=== PATIENT | female | born 1980 | race Caucasian/White ===

== ENCOUNTER → 2020-06-29 14:39 | Outpatient (CLI) | payer OTHER, SELFPAY ==
--- NOTE | ~2020-06-29 | US_ITS ---
EXAMINATION: US pelvic complete DATE: 06/29/2020 15:04 INDICATION: Pelvic pain Comparison:No prior studies for comparison. TECHNIQUE: Multiple transabdominal sonographic images of the pelvis performed. FINDINGS: The uterus measures 8.1 x 4.2 x 5.8 cm. There is an IUD in the endometrium. The endometrial complex measures 5 mm. The right ovary measures 2.9 x 1.7 x 2.6 cm and the left ovary measures 2.2 x 3.2 x 2.2 cm. There ar e small follicles in each ovary. Normal doppler signal in both ovaries. There is no free fluid in the pelvis. There are no abnormal masses seen on either side. IMPRESSION: 1. Unremarkable pelvic ultrasound. IUD in expected position. Reviewed, dictated and finalized at location B.
== END ==
PROVIDERS: Visit Provider Obstetrics & Gynecology
DX: R10.2 Pelvic and perineal pain (principal); Z97.5 Presence of (intrauterine) contraceptive device
CPT/HCPCS: 76856

== ENCOUNTER 2021-01-04 22:32 | Emergency (ER) | payer OTHER, SELFPAY ==
--- NOTE | ~2021-01-04 | XR_ITS ---
XR chest 2V DATE: 01/04/2021 23:05 INDICATION: Chest pain for one day. No cardiac history. TECHNIQUE: PA and lateral views COMPARISON: 10/09/2017 PA and lateral views FINDINGS: Normal heart size. No hilar or mediastinal enlargement. No pulmonary infiltrate or consolid ation, pleural effusion or pulmonary vascular congestion or pneumothorax. IMPRESSION: No active cardiopulmonary disease Reviewed, dictated and finalized at location A.
[2021-01-04 22:36] VITALS: BP 146/92; PULSE 89; RESP 19; TEMP 36.1; O2SAT 99
--- NOTE | 2021-01-04 22:40 | ECG_ITS ---
Measurements Intervals [place] Rate: 87 P: 39 WV: 154 QRS: 24 QRSD: 91 T: 11 QT: 362 QTc: 436 Interpretive Statements SINUS RHYTHM BORDERLINE ST-T WAVE ABNORMALITY- INFERIOR LEADS BASELINE ARTIFACT- I, II, III, AVR, AVL, AVF, V6 BORDERLINE ECG Electronically Signed On 01-05-2021 6:38:59 CDT by Jose Simon D.O.
[2021-01-04 23:02] LABS: Basophils Percent Auto 0.6 % (0.2-1.2); Eosinophils Absolute Auto 0.2 K/mm3 (0-0.3); Eosinophils Percent Auto 3.4 % (0-4.4); Hematocrit 38.9 % (37.0-47.0); Hemoglobin 13.5 g/dL (12.0-15.0); Immature Granulocyte Absolute 0.02 K/mm3 (0.00-0.031); Immature Granulocyte Percent A 0.3 % (0-0.5); Lymphocytes Percent Auto 29.3 % (18.3-44.2); Mean Corpuscular HGB Conc 34.7 g/dl (32-36); Mean Corpuscular Volume 95.1 fl (80-100); Mean Platelet Volume 9.6 fl (7.4-10.4); Monocytes Absolute Auto 0.5 K/mm3 (0.1-0.6); Monocytes Percent Auto 6.6 % (2.6-8.5); Neutrophils Absolute Auto 4.1 K/mm3 (1.3-6.7); Neutrophils Percent Auto 59.8 % (45.5-73.1); Platelet Count Result 203 k/mm3 (150-375); Red Blood Count 4.09 M/mm3 (4.2-5.4); Red Cell Distribution Width 11.8 % (11.5-14.5); White Blood Count 6.8 K/mm3 (4.5-10.0)
[2021-01-04 23:21] LABS: INR 0.9; Partial Thromboplastin Time 26.9 SECONDS (22.3-36.8); Prothrombin Time 11.9 Seconds (11.1-14.7)
[2021-01-04 23:54] LABS: Anion Gap 9 mmol/L (8-16); Blood Urea Nitrogen 15 mg/dL (7-17); Calcium 9.9 mg/dL (8.4-10.2); Carbon Dioxide 28 mmol/L (22-30); Chloride 103 mmol/L (98-107); Estimated CRCL calculation 81 ml/min; Estimated Glomerular Filt Rate > 60; Glucose 110 mg/dL (65-110); Potassium 3.8 mmol/L (3.4-5.0); Sodium 140 mmol/L (137-145)
[2021-01-05 00:05] LABS: Troponin I < 0.012 ng/mL (0.000-0.034)
[2021-01-05 00:27] VITALS: BP 129/96; PULSE 88; RESP 18; O2SAT 98
[2021-01-05 00:28] VITALS: PULSE 86
[2021-01-05] MEDS: ASPIRIN 81 MG CHEWABLE TABLET 324 MG PO (00:34)
--- NOTE | 2021-01-05 00:54 | PC.NURSE ---
Called lab to add d dimer
[2021-01-05 01:05] LABS: D Dimer 0.35 ug/mL (<0.48)
--- NOTE | 2021-01-05 01:24 | ED.GENADULT ---
HPI - General Adult General Chief complaint: Chest Pain Stated complaint: chest pain Time Seen by Provider: 01/05/21 00:48 Source: patient and RN notes reviewed History of Present Illness HPI narrative: Patient is a 40 y/o female complaining of upper chest pain starting yesterday morning. She describes her pain as throbbing and rates it as 5/10. Patient radiates to her neck and jaw. Deep respiration seems to aggravated her pain. She has no cough or fever. She feels slightly SOB. Related Data Allergies Allergy/AdvReac Type Severity Reaction Status Date / Time No Known Allergies Allergy Verified 02/21/18 13:19 Review of Systems Constitutional: Constitutional: Denies chills, Denies fever(s), Denies headache(s) and Denies weakness Eyes: Eyes: Denies blurry vision ENT: Denies headache(s) and Denies neck pain Cardiovascular: Cardiovascular: Reports chest pain and Reports dyspnea Respiratory: Respiratory: Denies cough and Reports dyspnea Gastrointestinal: Gastrointestinal: Denies abdominal pain, Denies diarrhea, Denies nausea and Denies vomiting Genitourinary: Genitourinary: Denies hematuria and Denies dysuria Musculoskeletal: Musculoskeletal: Denies back pain and Denies neck pain Neurologic: Denies headache(s) and Denies weakness Exam Const: General: no acute distress and well developed Orientation/consciousness: oriented to person, oriented to place, oriented to time and patient oriented x3 HENMT: Head: normocephalic Ears: external ears normal General nose exam: Normal external nose present Eyes: General: appearance normal, both eyes and all related structures Conjunctivae: conjunctivae normal Neck: Neck: normal visual inspection and full ROM Chest: Chest palpation & inspection: normal inspection of the chest and no tenderness Resp: Effort & Inspection: normal respiratory effort Auscultation: clear to auscultation bilaterally Cardio: Rate: regular rate Rhythm: regular rhythm GI: GI Palp: No abdominal tenderness and Yes Soft to palpation Skin: General skin exam: normal color and turgor normal Neuro: General: oriented to person, oriented to place, oriented to time and patient oriented x3 Cognition (Neuro): normal cognition Extrem: General: normal to inspection, full ROM and no pedal edema Psych: Appearance: grossly normal Mental Status: mental status grossly normal Affect: normal affect Course Vital Signs Vital signs: Vital Signs Temperature 36.1 C L 01/04/21 22:36 Pulse Rate 89 01/04/21 22:36 Respiratory Rate 19 01/04/21 22:36 Blood Pressure 146/92 H 01/04/21 22:36 Pulse Oximetry 99 01/04/21 22:36 Temperature 36.1 C L 01/04/21 22:36 Pulse Rate 81 01/05/21 02:50 Respiratory Rate 18 01/05/21 02:50 Blood Pressure 126/90 01/05/21 02:50 Pulse Oximetry 100 01/05/21 02:50 Medical Decision Making Vital Signs Vital Signs: Vital Signs Temperature 36.1 C L 01/04/21 22:36 Pulse Rate 89 01/04/21 22:36 Respiratory Rate 19 01/04/21 22:36 Blood Pressure 146/92 H 01/04/21 22:36 Pulse Oximetry 99 01/04/21 22:36 Temperature 36.1 C L 01/04/21 22:36 Pulse Rate 81 01/05/21 02:50 Respiratory Rate 18 01/05/21 02:50 Blood Pressure 126/90 01/05/21 02:50 Pulse Oximetry 100 01/05/21 02:50 Lab Data Result diagrams: 01/04/21 22:52 01/04/21 22:52 Labs: Lab Results 01/04/21 01/04/21 01/04/21 Range/Units 22:51 22:52 22:52 WBC 6.8 (4.5-10.0) K/mm3 RBC 4.09 L (4.2-5.4) M/mm3 Hgb 13.5 (12.0-15.0) g/dL Hct 38.9 (37.0-47.0) % MCV 95.1 (80-100) fl MCH 33.0 (26-34) pg MCHC 34.7 (32-36) g/dl RDW 11.8 (11.5-14.5) % Plt Count 203 (150-375) k/mm3 MPV 9.6 (7.4-10.4) fl Immature Gran % (Auto) 0.3 (0-0.5) % Neut % (Auto) 59.8 (45.5-73.1) % Lymph % (Auto) 29.3 (18.3-44.2) % [place] % (Auto) 6.6 (2.6-8.5) % Eos % (Auto) 3.4 (0-4.4) % Baso % (Auto)
[2021-01-05 01:27] LABS: Add Urine Microscopic? NO; Appearance Urine Clear (Clear); Bilirubin Urine Negative (Negative); Blood Urine Negative (Negative); Color Urine Yellow (Yellow); Glucose Urine UA Negative (Negative); Ketones Urine Negative (Negative); Leukocyte Esterase Ur Negative LEU/UL (Negative); Nitrate Urine Negative (Negative); Protein Urine Negative (Negative); RBC Urine 0-2 /hpf (0-2); Specific Grav Ur 1.013 (1.001-1.035); Squamous Epithelial Cell Urine Few /hpf (Few); Urobilinogen Urine Negative mg/dL (<2.0); WBC Urine 0-3 /hpf
[2021-01-05 02:33] LABS: Troponin I < 0.012 ng/mL (0.000-0.034)
[2021-01-05 02:50] VITALS: BP 126/90; PULSE 81; RESP 18; O2SAT 100
== END 2021-01-05 02:52 | disposition home or self-care (01) ==
PROVIDERS: Emergency Medicine; Emergency Provider Emergency Medicine
DX: R07.9 Chest pain, unspecified (principal); R94.31 Abnormal electrocardiogram [ECG] [EKG]
CPT/HCPCS: 36415; 71046; 80048; 81003; 81025; 84484; 85025; 85380; 85610; 85730; 93005; 99284; A9270

== ENCOUNTER 2021-07-02 17:58 | Emergency (ER) | payer OTHER, SELFPAY ==
--- NOTE | ~2021-07-02 | XR_ITS ---
EXAM: XR abdomen/kub 1V HISTORY: BACK AND LOWER ABD.PAIN COMPARISON: None available FINDINGS: Normal bowel gas pattern. No organomegaly. No abnormal abdominal calcification. Pelvic phl eboliths. IUD. Degenerative change in the lumbar spine, otherwise the bones and soft tissues normal f or age. IMPRESSION: No ileus or obstruction. Reviewed, dictated and finalized at location K. IMPRESSION: No ileus or obstruction.
[2021-07-02 18:09] VITALS: BP 130/87; PULSE 84; RESP 16; TEMP 36.3; O2SAT 100
--- NOTE | 2021-07-02 18:30 | ED.BACK ---
HPI - Back Pain/Injury General Chief Complaint: Back Pain/Injury Stated Complaint: back/lower belly pain Time Seen by Provider: 07/02/21 18:25 Source: patient, RN notes reviewed and old records reviewed Mode of arrival: ambulatory Limitations: no limitations History of Present Illness HPI Narrative: 41 year old female presents to [facility] care with complaints of 2-3 weeks of intermittent lower back pain and now having some mild pain in lower suprapubic abdomen and after urination with no hematuria noted. Patient report pain as aching and cramping type of pain rates pain 4/10. Patient has taken Aleve and Ibuprofen with no pain relief. Patient denies any known fevers, chills or sweat, denies any vomiting or diarrhea. MD elicited complaint: back pain Onset (ago): week(s) (2-3 weeks intermittent) Pain scale (0-10): 4 Quality: aching Location: lumbar spine Treatments prior to arrival: NSAIDS Work related injury: No Related Data Home Medications Medication Instructions Recorded Confirmed No Home Medications 07/02/21 07/02/21 Allergies Allergy/AdvReac Type Severity Reaction Status Date / Time No Known Allergies Allergy Verified 02/21/18 13:19 Review of Systems Review of Systems: CONSTITUTIONAL: Denies fever, chills, or sweats. EYES: Denies visual changes, redness, or discharge. ENT: Denies rhinorrhea, congestion, sore throat, or otalgia. CARDIOVASCULAR: Denies chest pain, palpitations, or edema. RESPIRATORY: Denies cough or dyspnea. GASTROINTESTINAL: Lower suprapubic area abdominal pain,no nausea, vomiting, or diarrhea. GENITOURINARY: Denies dysuria or hematuria, slight discomfort at end of urination SKIN: Denies rash or itching. MUSCULOSKELETAL:Positive for lumbar back pain, joint pain, or myalgia. NEUROLOGIC: Denies headache, numbness, or weakness. PSYCHIATRIC: Denies anxiety or depression. All systems reviewed & are unremarkable except as noted in HPI and below PMFSH Past Medical History Medical History (Updated 07/03/21 @ 00:06 by Pam Reid NP) Thyroid goiter Surgical History Surgical History (Updated 07/03/21 @ 00:05 by Pam Reid NP) H/O partial thyroidectomy [place] teeth extracted Family History Family History (Updated 07/03/21 @ 00:06 by Pam Reid NP) Grandparent Cerebrovascular accident Cancer Breast cancer Heart disease Social History Social History (Updated 07/03/21 @ 00:02 by Pam Reid NP) Alcohol intake: current Alcohol use details: social Substance use type: does not use Living arrangements: with family Gender identity (if verbalized by the patient): Female Comments At time of signature, agree with nursing past medical, surgical, social and family history. There is no relevant family history pertinent to the presenting complaint Exam Narrative: GENERAL: Well-appearing, well-nourished, and in no acute distress. HEAD: Normocephalic, atraumatic. EYES: PERRLA and EOMI. ENT: Nares clear, no rhinorrhea or epistaxis. Mucous membranes moist.TM's normal, throat pink with no lesions or exudates or tonsil swelling. NECK: Supple.no lymphadenopathy CHEST: Clear to auscultation. No respiratory distress.SAO2 100% on room air HEART: Regular rate and rhythm. No murmur heard. Normal peripheral pulses. ABDOMEN: Soft, tender over suprapubic area and stated discomfort at end of urination, nondistended, normal active bowel sounds.No CVA tenderness noted on examination, pain reported mid lumbar back region with no radiation down legs, denies any saddle paraesthesia or any difficulty with bowels or bladder function, no reported tingling or numbness to lower extremities, pulses of good quality to lower extremities. EXTREMITIES: Normal range of motion. No edema. SKIN: Warm, dry, no rash. NEURO: No focal deficits. Alert and oriented x3. Course Course Level of Care: Express Care Visit Vital Signs Vital signs: Vital Signs Temperature 36.3 C L 07/02/21 18:0
== END 2021-07-02 19:15 | disposition home or self-care (01) ==
PROVIDERS: Emergency Provider Registered Nurse
DX: M54.50 Low back pain, unspecified (principal); R10.30 Lower abdominal pain, unspecified
CPT/HCPCS: 74018; 81003; 99213; G0463